=== PATIENT | female | born 1990 | race Hispanic/Latino ===

== ENCOUNTER 2017-08-15 16:56 | Emergency (ER) | payer SELFPAY ==
--- NOTE | 2017-08-15 18:53 | ER ---
Nurse's Notes [facility] Name: Lauren Seaman Age: 27 yrs Sex: Female : 1990 Arrival Date: 08/15/2017 Time: 17:01 Bed Waiting Private MD: Diagnosis: Presentation: 08/15 17:08 Presenting complaint: Patient states: N/V since Tuesday with lesions developing on aj left thigh and right cheek that started on Tuesday. Patient [place] the beach on [place] before symptoms started. Transition of care: patient was not received from another setting of care. Onset of symptoms was August 13, 2017. Care prior to arrival: None. 17:08 Method Of Arrival: Ambulatory aj 17:08 Acuity: MARILY 3 aj Triage Assessment: 17:11 General: Appears in no apparent distress. comfortable, Behavior is calm, cooperative, aj appropriate for age. Pain: Denies pain. Neuro: Level of Consciousness is awake, alert, obeys commands, Oriented to person, place, time, situation. Respiratory: Airway is patent Respiratory effort is even, unlabored, Respiratory pattern is regular, symmetrical. GI: Abdomen is flat, non-distended, Reports diarrhea, nausea, vomiting. Derm: Skin is intact, is healthy with good turgor, Skin is pink, warm \T\ dry. normal. LAPELER: 17:11 LMP 06/13/2017 aj Historical: - Allergies: 17:11 No Known Allergies; aj - Home Meds: 17:11 None [Active]; aj - PMHx: 17:11 None; aj - PSHx: 17:11 None; aj - Immunization history:: Adult Immunizations up to date. - Social history:: Smoking status: Patient/guardian denies using tobacco. Vital Signs: 17:11 BP 111 / 75; Pulse 86; Resp 17; Pulse Ox 100% on R/A; Weight 63.5 kg; Height 5 ft. 2 aj in. (157.48 cm); Pain 7/10; 17:11 Body Mass Index 25.61 (63.50 kg, 157.48 cm) aj ED Course: 17:01 Patient arrived in ED. sb2 17:10 Triage completed. aj 17:11 Arm band placed on left wrist. Patient placed in waiting room, Patient notified of wait aj time. 18:53 Nicolas Shipley MD is Attending Physician. aj Administered Medications: No medications were administered Outcome: 18:52 Eloped from waiting room, before seeing physician Time discovered patient gone: July at 18:52 18:53 Patient left the ED. ketan Signatures: Andra Petty, RN RN Erica Robison sb2
== END 2017-08-15 18:53 | disposition left against medical advice (07) ==
LOC: ER 16:56
DX: Z53.21 Procedure and treatment not carried out due to patient leaving prior to being seen by health care provider (principal)
CPT/HCPCS: 99281